=== PATIENT | female | born 1980 | race Hispanic/Latino ===

== ENCOUNTER 2022-01-21 02:22 | Emergency (ER) | payer OTHER, MEDICAID, SELFPAY ==
[2022-01-21 03:12] VITALS: BP 170/101; PULSE 64; RESP 20; TEMP 36.4; O2SAT 98; BMI 33.0
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
== END 2022-01-21 03:47 | disposition home or self-care (01) ==
PROVIDERS: Emergency Provider Emergency Medicine
DX: T14.90XA Injury, unspecified, initial encounter (principal); V89.2XXA Person injured in unspecified motor-vehicle accident, traffic, initial encounter
CPT/HCPCS: 99281